=== PATIENT | female | born 1995 | race Caucasian/White ===

== ENCOUNTER 2018-11-10 15:06 | Emergency (ER) | payer OTHER ==
[~2018-11-10] VITALS: Ht 160 cm; Wt 56.4 kg
[2018-11-10 15:11] VITALS: Ht 160 cm; Wt 56.4 kg
[2018-11-10 15:56] LABS: UA SPECIFIC GRAVITY 1.025 (1.005-1.035); microscopic required? YES; urine erythrocyte 2+ (NEGATIVE)
[2018-11-10 15:58] LABS: PLATELET COUNT 223 x10^3mcL (130-400); RED CELL DISTRIBUTION WIDTH 13.3 % (11.5-14.5)
[2018-11-10 15:59] LABS: BASOPHIL % 0 % (0-2); CALCIUM 8.4 mg/dL (8.5-10.1); CARBON DIOXIDE 25.3 mmol/L (21-32); CHLORIDE SERUM 100 mmol/L (98-107); GFR1 > 60 mL/min; GLUCOSE SERUM 159 mg/dL (74-106); POTASSIUM SERUM 3.7 mmol/L (3.5-5.1); SODIUM SERUM 134 mmol/L (136-145)
[2018-11-10 16:05] LABS: ALBUMIN 3.5 g/dL (3.4-5.0); ALKALINE PHOSPHATASE 82 U/L (46-116); ALT/SGPT 32 U/L (14-59); AST/SGOT 23 U/L (15-37); BILIRUBIN TOTAL 0.54 mg/dL (0.20-1.00); LIPASE 62 IU/L (73-393); TOTAL PROTEIN, SERUM 7.9 g/dL (6.4-8.2)
[2018-11-10 17:25] VITALS: BP 111/54
== END 2018-11-10 17:25 | disposition home or self-care (01) ==
LOC: ED 15:06
PROVIDERS: Emergency Medicine
DX: N10 Acute pyelonephritis (principal); R10.12 Left upper quadrant pain
CPT/HCPCS: 87804; J0696; J1885; J7030; Q0092

== ENCOUNTER 2019-02-02 01:04 | Emergency (ER) | payer OTHER ==
[~2019-02-02] VITALS: Ht 160 cm; Wt 57.2 kg
[2019-02-02 01:10] VITALS: Ht 160 cm; Wt 57.2 kg
[2019-02-02 02:28] LABS: BASOPHIL % 0.7 % (0-2); PLATELET COUNT 280 x10^3mcL (130-400)
[2019-02-02 02:33] LABS: CALCIUM 9.5 mg/dL (8.5-10.1); CARBON DIOXIDE 24.5 mmol/L (21-32); CHLORIDE SERUM 103 mmol/L (98-107); CREATININE SERUM 0.6 mg/dL (0.6-1.0); GFR1 > 60 mL/min; GLUCOSE SERUM 81 mg/dL (74-106); POTASSIUM SERUM 3.7 mmol/L (3.5-5.1); SODIUM SERUM 138 mmol/L (136-145)
[2019-02-02 02:40] LABS: ALBUMIN 3.9 g/dL (3.4-5.0); ALKALINE PHOSPHATASE 102 U/L (46-116); ALT/SGPT 37 U/L (14-59); AST/SGOT 26 U/L (15-37); BILIRUBIN TOTAL 0.31 mg/dL (0.20-1.00); LIPASE 104 IU/L (73-393); TOTAL PROTEIN, SERUM 7.9 g/dL (6.4-8.2)
[2019-02-02 03:50] VITALS: BP 101/69
[2019-02-02 04:18] LABS: UA SPECIFIC GRAVITY 1.025 (1.005-1.035); microscopic required? YES; urine erythrocyte NEGATIVE (NEGATIVE)
== END 2019-02-02 05:16 | disposition home or self-care (01) ==
LOC: ED 01:04
PROVIDERS: Emergency Medicine
DX: O23.41 Unspecified infection of urinary tract in pregnancy, first trimester (principal); Z3A.01 Less than 8 weeks gestation of pregnancy
CPT/HCPCS: 36415